=== PATIENT | female | born 1985 | race Caucasian/White ===

== ENCOUNTER 2017-01-28 10:26 | Emergency (ER) | payer MEDICAID ==
[2017-01-28 10:51] VITALS: BP 116/78
[2017-01-28] MEDS ORDERED: Sodium Chloride 0.9% 10 ML Syringe FLUSH PRN (11:05)
[2017-01-28] MEDS ORDERED: Sodium Chloride 0.9% 1,000 ML IV ONE (11:05)
--- NOTE | 2017-01-28 11:08 | EDM.PDOC ---
ED HPI GENERAL MEDICAL PROBLEM - General Chief Complaint: General Stated Complaint: JUAN, HEAD HURTS, VOMITTING Time Seen by Provider: 01/28/17 11:00 Source of Information: Reports: Patient, RN, RN Notes Reviewed History Limitations: Reports: No Limitations - History of Present Illness INITIAL COMMENTS - FREE TEXT/NARRATIVE: Pt presents to the ER with c/o nausea, vomiting, diarrhea, and generalized aching/weakness since last evening. She admits to fever and chills. She states the symptoms began last evening and have progressively gotten worse. She states she has never felt this sick ever. Onset: Gradual Duration: Getting Worse Location: Reports: Generalized Quality: Reports: Ache Severity: Moderate Improves with: Reports: None Worsens with: Reports: None Associated Symptoms: Reports: Headaches, Nausea/Vomiting Generalized Pain Score (Numeric/FACES): 8 - Related Data Allergies Allergy/AdvReac Type Severity Reaction Status Date / Time No Known Allergies Allergy Verified 01/28/17 10:36 Home Meds: Home Meds DULoxetine [Cymbalta] 60 mg PO DAILY 01/28/17 [History] buPROPion HCl [Wellbutrin Xl] 300 mg PO BEDTIME 01/28/17 [History] Past Medical History - Past Health History Medical/Surgical History: Denies Medical/Surgical History Genitourinary History: Reports: Renal Calculus Psychiatric History: Reports: Anxiety, Depression - Past Surgical History GI Surgical History: Reports: Cholecystectomy Social & Family History - Family History Family Medical History: Noncontributory - Tobacco Use Smoking Status *Q: Never Smoker Second Hand Smoke Exposure: No - Caffeine Use Caffeine Use: Reports: Coffee, Energy Drinks, Soda, Tea - Alcohol Use Days Per Week of Alcohol Use: 0 - Recreational Drug Use Recreational Drug Use: No ED ROS GENERAL - Review of Systems Review Of Systems: ROS reveals no pertinent complaints other than HPI. ED EXAM, GENERAL - Physical Exam Exam: See Below Exam Limited By: No Limitations General Appearance: Alert, WD/WN, Mild Distress Eye Exam: Bilateral Eye: EOMI, Normal Inspection Ears: Normal External Exam, Hearing Grossly Normal Nose: Normal Inspection Throat/Mouth: Normal Inspection, Normal Voice, No Airway Compromise Head: Atraumatic, Normocephalic Neck: Normal Inspection, Supple, Non-Tender, Full Range of Motion Respiratory/Chest: No Respiratory Distress, Lungs Clear, Normal Breath Sounds, No Accessory Muscle Use, Chest Non-Tender Cardiovascular: Normal Peripheral Pulses, Regular Rate, Rhythm, No Edema, No Gallop, No JVD, No Murmur, No Rub Peripheral Pulses: 2+: Radial (L), Radial (R) GI/Abdominal: Normal Bowel Sounds, Soft, Non-Tender (Female) Exam: Deferred Rectal (Female) Exam: Deferred Back Exam: Normal Inspection, Full Range of Motion Extremities: Normal Inspection, Normal Range of Motion, Non-Tender, No Pedal Edema, Normal Capillary Refill Neurological: Alert, Oriented, Normal Cognition, Normal Gait, No Motor/Sensory Deficits Psychiatric: Normal Affect, Normal Mood Skin Exam: Warm, Dry, Intact, Normal Color, No Rash Lymphatic: No Adenopathy Course - Vital Signs Last Recorded V/S: Last Vital Signs Temp 99.1 F 01/28/17 10:49 Pulse 107 H 01/28/17 10:49 Resp 16 01/28/17 10:49 BP 116/78 01/28/17 10:49 Pulse Ox 100 01/28/17 10:49 - Orders/Labs/Meds Orders: Active Orders 24 hr Category Date Time Status Peripheral IV Care [RC] . DIRECTED Care 01/28/17 11:05 Active CULTURE STREP A CONFIRMATION [RM] Stat Lab 01/28/17 10:45 Results STREP SCRN A RAPID W CULT CONF [RM] Stat Lab 01/28/17 10:45 Results URINALYSIS W/MICROSCOPIC [UA W/MICROSCOPIC] [URIN] Stat Lab 01/28/17 10:54 Uncollected Sodium Chloride 0.9% [Saline Flush] Med 01/28/17 11:05 Active 10 ml FLUSH ASDIRECTED PRN Peripheral IV Insertion Adult [OM.PC] Stat Oth 01/28/17 11:04 Ordered Medication Orders Sodium Chloride (Saline Flush) 10 ml FLUSH ASDIRECTED PRN PRN Reason: Keep Vein Open Last Admin: 01/28/17 11:45 Dose: 10 ml Labs: Laboratory Tests 01/28/17 01/28/17 01/28/17 Range/Units 10:15 11:15 11:15 WBC 9.4 (5.0-10.0) 10^3/uL RBC 4.93 (4.2-5.4) 10^6/uL Hgb 13.6 D (12.0-16.0) g/dL Hct 40.0 (37.0-47.0) % MCV 81.1 (80-100) fL MCH 27.6 (27.0-34.0) pg MCHC 34.0 (33.0-35.0) g/dL Plt Count 255 (150-450) 10^3/uL Neut % (Auto) 82.1 H (42.2-75.2) % Lymph % (Auto) 11.6 L (20.5-50.1) % Millard % (Auto) 5.6 (2-8) % Eos % (Auto) 0.5 L (1.0-3.0) % Baso % (Auto) 0.2 (0.0-1.0) % Sodium 136 (135-145) mmol/L Potassium 3.6 (3.6-5.0) mmol/L Chloride 102 (101-111) mmol/L Carbon Dioxide 24.0 (21.0-31.0) mmol/L Anion Gap 13.6 BUN 13 (7-18) mg/dL Creatinine 0.7 (0.6-1.3) mg/dL Est Cr Clr Drug Dosing 101.48 mL/min Estimated GFR (MDRD) > 60 BUN/Creatinine Ratio 18.57 Glucose 96 (74-105) mg/dL Calcium 8.8 (8.4-10.2) mg/dl Total Bilirubin 0.9 (0.2-1.0) mg/dL AST 36 (10-42) IU/L ALT 73 H (10-60) IU/L Alkaline Phosphatase 72 (42-121) IU/L Total Protein 7.4 (6.7-8.2) g/dl Albumin 3.9 (3.2-5.5) g/dl Globulin 3.5 Albumin/Globulin Ratio 1.11 Urine HCG, Qual Negative Meds: Medications Generic Name Dose Route Start Last Admin Trade Name Freq PRN Reason Stop Dose Admin Sodium Chloride 10 ml 01/28/17 11:05 01/28/17 11:45 Saline Flush FLUSH 10 ml ASDIRECTED PRN Administration Keep Vein Open Discontinued Medications Generic Name Dose Route Start Last Admin Trade Name Freq PRN Reason Stop Dose Admin Sodium Chloride 1,000 mls @ 999 mls/hr 01/28/17 11:05 01/28/17 11:45 Normal Saline IV 01/28/17 12:05 999 mls/hr .BOLUS ONE Administration Ondansetron HCl 4 mg 01/28/17 11:43 01/28/17 11:47 Zofran IV 01/28/17 11:44 4 mg ONETIME ONE Administration Departure - Departure Time of Disposition: 12:52 Disposition: Home, Self-Care 01 Condition: Fair Clinical Impression: Viral gastroenteritis - Discharge Information Instructions: Viral Gastroenteritis, Adult, [id number], Nausea, Adult, Easy- to-Read, Diarrhea, Adult, [id number] Forms: ED Department Discharge Additional Instructions: Follow up with your primary care provider next week if no improvement. RX: Zofran Rest, fluids Tylenol or ibuprofen as directed for pain - My Orders Last 24 Hours: My Active Orders 01/28/17 10:45 CULTURE STREP A CONFIRMATION [RM] Stat STREP SCRN A RAPID W CULT CONF [RM] Stat 01/28/17 10:54 URINALYSIS W/MICROSCOPIC [UA W/MICROSCOPIC] [URIN] Stat 01/28/17 11:04 Peripheral IV Insertion Adult [OM.PC] Stat 01/28/17 11:05 Peripheral IV Care [RC] . DIRECTED Sodium Chloride 0.9% [Saline Flush] 10 ml FLUSH ASDIRECTED PRN - Assessment/Plan Last 24 Hours: My Active Orders 01/28/17 10:45 CULTURE STREP A CONFIRMATION [RM] Stat STREP SCRN A RAPID W CULT CONF [RM] Stat 01/28/17 10:54 URINALYSIS W/MICROSCOPIC [UA W/MICROSCOPIC] [URIN] Stat 01/28/17 11:04 Peripheral IV Insertion Adult [OM.PC] Stat 01/28/17 11:05 Peripheral IV Care [RC] . DIRECTED Sodium Chloride 0.9% [Saline Flush] 10 ml FLUSH ASDIRECTED PRN
[2017-01-28 11:40] LABS: CHLORIDE,CL 102 mmol/L (101-111); SODIUM,NA 136 mmol/L (135-145)
[2017-01-28] MEDS ORDERED: Ondansetron 4 MG/2 ML SDV IV ONE (11:43)
== END 2017-01-28 13:19 | disposition home or self-care (01) ==
LOC: DL.ED 10:26
DX: A08.4 Viral intestinal infection, unspecified (principal); F32.9 Major depressive disorder, single episode, unspecified; Z79.899 Other long term (current) drug therapy
CPT/HCPCS: 36415; 80053; 81025; 85025; 87081; 87430; 87804; 96361; 96374; 99283; J2405; J7030; J7050

== ENCOUNTER 2019-03-20 20:14 | Emergency (ER) | payer MEDICAID ==
[2019-03-20] MEDS ORDERED: Ondansetron 4 MG Tab.DIS PO ONE (20:15)
[2019-03-20] MEDS ORDERED: Acetaminophen/oxyCODONE 325-5 MG Tab PO ONE (20:15)
[2019-03-20 20:42] VITALS: BP 131/85; PULSE 62
--- NOTE | 2019-03-20 20:59 | EDM.PDOC ---
ED HPI GENERAL MEDICAL PROBLEM - General Chief Complaint: Flank Pain Stated Complaint: ABDOMINAL PAIN Time Seen by Provider: 03/20/19 20:59 Source of Information: Reports: Patient, RN, RN Notes Reviewed History Limitations: Reports: No Limitations - History of Present Illness INITIAL COMMENTS - FREE TEXT/NARRATIVE: patient presents to ER with complaint of left lower quadrant, left flank pain. Patient states she has a and tubal ligation 6 weeks ago. Patient states she has a history of kidney stones, with her last flareup of kidney stones being during . Patient admits to nausea and vomiting, frequency , urgency, burning with urination. 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 Onset: Gradual Duration: Constant, Getting Worse Location: Reports: Abdomen Left Lower Abdomen Pain Score (Numeric/FACES): 7 - Related Data Allergies Allergy/AdvReac Type Severity Reaction Status Date / Time No Known Allergies Allergy Verified 01/30/19 18:03 Home Meds: Home Meds Escitalopram [Lexapro] 20 mg PO DAILY 01/04/18 [History] No122/Iron/Folic Acid [ Multi Tablet] 1 each PO DAILY 01/09/18 [History] ursodioL [Ursodiol] 250 mg PO BID 01/06/19 [History] Past Medical History - Past Health History Medical/Surgical History: Denies Medical/Surgical History HEENT History: Reports: None Cardiovascular History: Reports: None Other Cardiovascular History: PEDAL EDEMA Respiratory History: Reports: Bronchitis, Recurrent Gastrointestinal History: Reports: Chronic Constipation, Irritable Bowel Syndrome Genitourinary History: Reports: Renal Calculus [employer] History: Reports: , Spontaneous Musculoskeletal History: Reports: Arthritis Neurological History: Reports: None Psychiatric History: Reports: ADHD, Anxiety, Depression Endocrine/Metabolic History: Reports: Obesity/BMI 30+ Hematologic History: Reports: Anemia Immunologic History: Reports: None Oncologic (Cancer) History: Reports: None Dermatologic History: Reports: None - Infectious Disease History Infectious Disease History: Reports: None - Past Surgical History Head Surgeries/Procedures: Reports: None HEENT Surgical History: Reports: None Cardiovascular Surgical History: Reports: None GI Surgical History: Reports: Cholecystectomy Female Surgical History: Reports: Section Musculoskeletal Surgical History: Reports: None Social & Family History - Family History Family Medical History: Noncontributory - Tobacco Use Smoking Status *Q: Never Smoker Second Hand Smoke Exposure: No - Caffeine Use Caffeine Use: Reports: Coffee, Soda Caffeine Use Comment: 1 pop daily - Recreational Drug Use Recreational Drug Use: No ED ROS GENERAL - Review of Systems Review Of Systems: Comprehensive ROS is negative, except as noted in HPI. ED EXAM, RENAL/ - Physical Exam Exam: See Below Exam Limited By: No Limitations General Appearance: Alert, WD/WN, Mild Distress Eye Exam: Bilateral Eye: EOMI, Normal Inspection Ears: Normal External Exam, Hearing Grossly Normal Nose: Normal Inspection Throat/Mouth: Normal Inspection, Normal Voice, No Airway Compromise Head: Atraumatic, Normocephalic Neck: Normal Inspection, Supple, Non-Tender, Full Range of Motion Respiratory/Chest: No Respiratory Distress, Lungs Clear, Normal Breath Sounds, No Accessory Muscle Use, Chest Non-Tender Cardiovascular: Normal Peripheral Pulses, Regular Rate, Rhythm, No Edema, No Gallop, No JVD, No Murmur, No Rub GI/Abdominal: Normal Bowel Sounds, Soft, No Organomegaly, No Distention, No Abnormal Bruit, No Mass, Tender (LLQ, Left flank pain) (Female) Exam: Deferred Rectal (Female) Exam: Deferred Back Exam: CVA Tenderness (L) Extremities: Normal Inspection, Normal Range of Motion, Non-Tender, Normal Capillary Refill, No Pedal Edema Neurological: Alert, Oriented, CN II-XII Intact, Normal Cognition, Normal Gait, Normal Reflexes, No Motor/Sensory Deficits Psychiatric: Normal Affect, Normal Mood Skin Exam: Warm, Dry, Intact, Normal Color, No Rash Lymphatic: No Adenopathy Course - Vital Signs Last Recorded V/S: Last Vital Signs Temp 97.1 F 03/20/19 20:37 Pulse 62 03/20/19 20:37 Resp 16 03/20/19 20:37 BP 131/85 03/20/19 20:37 Pulse Ox 100 03/20/19 20:37 - Orders/Labs/Meds Orders: Active Orders 24 hr Category Date Time Status Abdomen 2V AP Flat Upright [CR] Urgent Exams 03/20/19 21:05 Taken Abdomen Pelvis wo Cont [CT] Urgent Exams 03/20/19 21:50 Taken CULTURE URINE [RM] Stat Lab 03/20/19 20:35 Received Labs: Laboratory Tests 03/20/19 03/20/19 03/20/19 Range/Units 20:35 20:35 20:52 WBC 9.9 (5.0-10.0) 10^3/uL RBC 4.69 (4.2-5.4) 10^6/uL Hgb 12.0 (12.0-16.0) g/dL Hct 36.1 L (37.0-47.0) % MCV 77.0 L D (80-100) fL MCH 25.6 L (27.0-34.0) pg MCHC 33.2 (33.0-35.0) g/dL Plt Count 312 (150-450) 10^3/uL Neut % (Auto) 71.5 (42.2-75.2) % Lymph % (Auto) 20.7 (20.5-50.1) % Elbert % (Auto) 5.9 (2-8) % Eos % (Auto) 1.7 (1.0-3.0) % Baso % (Auto) 0.2 (0.0-1.0) % Sodium (135-145) mmol/L Potassium (3.6-5.0) mmol/L Chloride (101-111) mmol/L Carbon Dioxide (21.0-31.0) mmol/L Anion Gap BUN (7-18) mg/dL Creatinine (0.6-1.3) mg/dL Est Cr Clr Drug Dosing mL/min Estimated GFR (MDRD) BUN/Creatinine Ratio Glucose (74-105) mg/dL Calcium (8.4-10.2) mg/dl Total Bilirubin (0.2-1.0) mg/dL AST (10-42) IU/L ALT (10-60) IU/L Alkaline Phosphatase (42-121) IU/L Total Protein (6.7-8.2) g/dl Albumin (3.2-5.5) g/dl Globulin Albumin/Globulin Ratio Urine Color Dark yellow (YELLOW) Urine Appearance Turbid (CLEAR) Urine pH 5.5 (5.0-9.0) Ur Specific [place] 1.025 (1.005-1.030) Urine Protein 100 H (NEGATIVE) Urine Glucose (UA) Negative (NEGATIVE) Urine Ketones Negative (NEGATIVE) Urine Occult Blood Large H (NEGATIVE) Urine Nitrite Negative (NEGATIVE) Urine Bilirubin Small H (NEGATIVE) Urine Urobilinogen 1.0 (0.2-1.0) mg/dL Ur Leukocyte Esterase Trace H (NEGATIVE) Urine RBC >100 H /HPF Urine WBC 5-10 H (0-5/HPF) /HPF Ur Epithelial Cells Moderate H (NOT SEEN) /HPF Amorphous Sediment Few (NOT SEEN) /HPF Urine Bacteria Few (0-FEW/HPF) /HPF Urine Mucus Few H (NOT SEEN) /LPF Urine HCG, Qual Negative 03/20/19 Range/Units 20:52 WBC (5.0-10.0) 10^3/uL RBC (4.2-5.4) 10^6/uL Hgb (12.0-16.0) g/dL Hct (37.0-47.0) % MCV (80-100) fL MCH (27.0-34.0) pg MCHC (33.0-35.0) g/dL Plt Count (150-450) 10^3/uL Neut % (Auto) (42.2-75.2) % Lymph % (Auto) (20.5-50.1) % Elbert % (Auto) (2-8) % Eos % (Auto) (1.0-3.0) % Baso % (Auto) (0.0-1.0) % Sodium 138 (135-145) mmol/L Potassium 3.4 L (3.6-5.0) mmol/L Chloride 105 (101-111) mmol/L Carbon Dioxide 24.0 (21.0-31.0) mmol/L Anion Gap 12.4 BUN 12 (7-18) mg/dL Creatinine 0.8 (0.6-1.3) mg/dL Est Cr Clr Drug Dosing 87.18 mL/min Estimated GFR (MDRD) > 60 BUN/Creatinine Ratio 15.00 Glucose 112 H (74-105) mg/dL Calcium 9.0 (8.4-10.2) mg/dl Total Bilirubin 0.8 (0.2-1.0) mg/dL AST 48 H (10-42) IU/L ALT 58 (10-60) IU/L Alkaline Phosphatase 67 (42-121) IU/L Total Protein 7.3 (6.7-8.2) g/dl Albumin 3.7 (3.2-5.5) g/dl Globulin 3.6 Albumin/Globulin Ratio 1.03 Urine Color (YELLOW) Urine Appearance (CLEAR) Urine pH (5.0-9.0) Ur Specific [place] (1.005-1.030) Urine Protein (NEGATIVE) Urine Glucose (UA) (NEGATIVE) Urine Ketones (NEGATIVE) Urine Occult Blood (NEGATIVE) Urine Nitrite (NEGATIVE) Urine Bilirubin (NEGATIVE) Urine Urobilinogen (0.2-1.0) mg/dL Ur Leukocyte Esterase (NEGATIVE) Urine RBC /HPF Urine WBC (0-5/HPF) /HPF Ur Epithelial Cells (NOT SEEN) /HPF Amorphous Sediment (NOT SEEN) /HPF Urine Bacteria (0-FEW/HPF) /HPF Urine Mucus (NOT SEEN) /LPF Urine HCG, Qual Meds: Medications Discontinued Medications Generic Name Dose Route Start Last Admin Trade Name Freq PRN Reason Stop Dose Admin Ciprofloxacin 500 mg 03/20/19 22:52 Ciprofloxacin Hcl PO 03/20/19 22:53 ONETIME ONE Fentanyl 50 mcg 03/20/19 22:12 03/20/19 22:22 Sublimaze IVPUSH 03/20/19 22:13 50 mcg ONETIME ONE Administration Sodium Chloride 1,000 mls @ 999 mls/hr 03/20/19 21:24 03/20/19 21:26 Normal Saline IV 03/20/19 22:24 999 mls/hr .BOLUS ONE Administration Ketorolac Tromethamine 30 mg 03/20/19 21:28 03/20/19 21:39 Toradol IVPUSH 03/20/19 21:29 30 mg ONETIME ONE Administration Metronidazole 500 mg 03/20/19 22:53 Metronidazole PO 03/20/19 22:54 ONETIME ONE Ondansetron HCl 4 mg 03/20/19 21:27 03/20/19 21:38 Zofran IV 03/20/19 21:28 4 mg ONETIME ONE Administration - Radiology Interpretation Free Text/Narrative:: Abdominal flat and upright xray: FINDINGS: Lower thorax: The right hemidiaphragm dome is excluded from the upright frontal image. No free air is seen on the left area Gastrointestinal tract: No over distention of bowel loops is seen. Intraperitoneal space: Surgical clips are present in the right upper quadrant, consistent with previous cholecystectomy. Bones/joints: The spine, sacroiliac joints, and hip joints are normal. Soft tissues: The psoas margins are visualized and appear normal. IMPRESSION: No acute abnormality. Thank you for allowing us to participate in the care of your patient. Dictated and Authenticated by: Sam Garcia MD 03/20/2019 9:42 PM Central Time ([place] & [place]) CT Abdomen/Pelvis without contrast: FINDINGS: Heart: The visualized portions of the heart are unremarkable. Liver: There is a diffuse decrease in hepatic parenchymal density. Gallbladder and bile ducts: There has been a cholecystectomy. The common bile duct is not dilated. Pancreas: The pancreas is normal. Spleen: The spleen is normal. Adrenals: The adrenal glands are normal. The adrenal glands are normal. Kidneys and ureters: There is a 3 mm calculus in the lower pole of the right kidney. There is a 2 mm calculus in the midportion of the right kidney. There is mild distention of the left pelvic calyceal system. There are 2 adjacent tics millimeter calculi in the mid left ureter with modest distention of the upstream urothelium. Stomach and bowel: The stomach is normal. No over distention of bowel loops is seen. Appendix: A normal appendix is identified. Intraperitoneal space: No evidence of intraperitoneal free air. Vasculature: The aorta is normal. Lymph nodes: No pathologic lymph node enlargement is demonstrated. Bladder: The bladder is normal. Reproductive: The uterus is normal. Bones/joints: Unremarkable Soft tissues: The extra-abdominal soft tissues are normal. IMPRESSION: 1. Left mid ureteral calculi. 2. Mild fatty infiltration of the liver. Thank you for allowing us to participate in the care of your patient. Dictated and Authenticated by: Sam Garcia MD 03/20/2019 10:29 PM Central Time ([place] & [place]) See rad report - Re-Assessments/Exams Free Text/Narrative Re-Assessment/Exam: 03/20/19 23:01 Discussed Pt case with Dr. Martins at [facility] who states the patient can be seen in the clinic tomorrow with the possibility of procedure on . Departure - Departure Time of Disposition: 22:56 Disposition: Home, Self-Care 01 Condition: Fair Clinical Impression: UTI, Urinary tract infectious disease, Kidney stones, Bacterial vaginosis - Discharge Information *PRESCRIPTION DRUG MONITORING PROGRAM REVIEWED*: No *COPY OF PRESCRIPTION DRUG MONITORING REPORT IN PATIENT RICHARD: No Instructions: Kidney Stones, [id number], Urinary Tract Infection, Adult, Easy -to-Read, Bacterial Vaginosis, [id number], Flank Pain, Adult, [id number] Forms: ED Department Discharge Additional Instructions: Rx: Percocet 5/325, one every 4-6 hours as needed for pain .Zofran 4 mg 1 every 4-6 hours as needed for nausea Flagyl 500 mg one orally twice daily for 7 days Cipro 500 mg one orally twice daily for 10 days Drink plenty of water call the urology clinic in [place] right away in the morning [phone] Urology clinic is located at the [facility] Return to the ER with any worsening of symptoms Sepsis Event Note - Evaluation Sepsis Screening Result: No Definite Risk - Focused Exam Vital Signs: Vital Signs Temp Pulse Resp BP Pulse Ox 03/20/19 20:37 97.1 F 62 16 131/85 100 Date Exam was Performed: 03/20/19 Time Exam was Performed: 23:01 - My Orders Last 24 Hours: My Active Orders 03/20/19 20:35 CULTURE URINE [RM] Stat 03/20/19 21:05 Abdomen 2V AP Flat Upright [CR] Urgent 03/20/19 21:50 Abdomen Pelvis wo Cont [CT] Urgent - Assessment/Plan Last 24 Hours: My Active Orders 03/20/19 20:35 CULTURE URINE [RM] Stat 03/20/19 21:05 Abdomen 2V AP Flat Upright [CR] Urgent 03/20/19 21:50 Abdomen Pelvis wo Cont [CT] Urgent
[2019-03-20 21:23] LABS: ANION GAP 12.4; CHLORIDE,CL 105 mmol/L (101-111); SODIUM,NA 138 mmol/L (135-145)
[2019-03-20] MEDS ORDERED: Sodium Chloride 0.9% 1,000 ML IV ONE (21:24)
[2019-03-20] MEDS ORDERED: Ondansetron 4 MG/2 ML SDV IV ONE (21:27)
[2019-03-20] MEDS ORDERED: Ketorolac 30 MG/ML SDV IVPUSH ONE (21:28)
[2019-03-20] MEDS ORDERED: fentaNYL 100 MCG/2 ML SDV IVPUSH ONE (22:12)
[2019-03-20] MEDS ORDERED: Ciprofloxacin 500 MG Tab PO ONE (22:52)
[2019-03-20] MEDS ORDERED: metroNIDAZOLE 250 MG Tab PO ONE (22:53)
[2019-03-20] MEDS ORDERED: Ondansetron 4 MG Tab.DIS ONE (23:06)
[2019-03-20] MEDS ORDERED: Acetaminophen/oxyCODONE 325-5 MG Tab ONE (23:06)
== END 2019-03-20 23:15 | disposition home or self-care (01) ==
LOC: DL.ED 20:14
DX: N39.0 Urinary tract infection, site not specified (principal); N20.0 Calculus of kidney; N76.0 Acute vaginitis; B96.89 Other specified bacterial agents as the cause of diseases classified elsewhere; F41.9 Anxiety disorder, unspecified; F32.9 Major depressive disorder, single episode, unspecified; E66.9 Obesity, unspecified; Z68.42 Body mass index [BMI] 45.0-49.9, adult; M19.90 Unspecified osteoarthritis, unspecified site; Z79.899 Other long term (current) drug therapy
CPT/HCPCS: 36415; 74019; 74176; 80053; 81001; 81025; 85025; 87086; 96361; 96374; 96375; 99284; A9270; J1885; J2405; J3010; J7030

== ENCOUNTER 2020-07-08 17:05 | Emergency (ER) | payer MEDICAID ==
[2020-07-08] MEDS ORDERED: Acetaminophen/HYDROcodone 325-10 MG Tab PO ONE (17:06)
[2020-07-08] MEDS ORDERED: Ondansetron 4 MG Tab.DIS PO ONE (17:06)
[2020-07-08 17:28] VITALS: BP 104/62; PULSE 70
[2020-07-08] MEDS ORDERED: Sodium Chloride 0.9% 1,000 ML IV ONE (17:33)
[2020-07-08] MEDS ORDERED: Sodium Chloride 0.9% 10 ML Syringe FLUSH PRN (17:33)
[2020-07-08] MEDS ORDERED: Ondansetron 4 MG/2 ML SDV IV ONE (18:11)
[2020-07-08 18:18] LABS: ANION GAP 13.3 mEq/L (7-13); CHLORIDE,CL 104 mmol/L (98-107); SODIUM,NA 140 mmol/L (136-145)
--- NOTE | 2020-07-08 18:36 | EDM.PDOC ---
Scribed by Clare Valentine 07/08/20 1824 for Rhea Leos MD ED HPI GENERAL MEDICAL PROBLEM - General Source of Information: Reports: Patient, RN, RN Notes Reviewed History Limitations: Reports: No Limitations - History of Present Illness Onset: Today Severity: Moderate Improves with: Reports: None Worsens with: Reports: None Associated Symptoms: Reports: No Other Symptoms <Rhea Leos - Last Filed: 07/08/20 18:42> <DianasoniaTaylorReyna Lee - Last Filed: 07/09/20 02:44> - General Chief Complaint: Syncope Stated Complaint: PASSED OUT HIT HEAD ON TUB Time Seen by Provider: 07/08/20 17:19 - History of Present Illness INITIAL COMMENTS - FREE TEXT/NARRATIVE: Patient presents to ED by POV with complaint syncope. Patient states that she was sitting on toilet peeing when she became nauseated and had a syncopal episode. Patient states she hit her chin on the bathtub. Patient states that she was started on Abilify 10mg and took her first dose last night. Patient states that she has been vaping and smoked marijuana a few days ago. She has nausea since waking this morning. Denies vomiting or fever. Denies abdominal pain or dysuria. She denies vertigo, chest pain, palpitations, or headache. (Rhea Leos) - Related Data Allergies Allergy/AdvReac Type Severity Reaction Status Date / Time No Known Allergies Allergy Verified 07/08/20 17:21 Home Meds: Home Meds Escitalopram [Lexapro] 20 mg PO DAILY 01/04/18 [History] ARIPiprazole [Abilify] 10 mg PO DAILY 07/08/20 [History] risperiDONE [RisperiDAL] 1 mg PO BEDTIME 07/08/20 [History] Past Medical History - Past Health History Medical/Surgical History: Denies Medical/Surgical History HEENT History: Reports: None Cardiovascular History: Reports: None Other Cardiovascular History: PEDAL EDEMA Respiratory History: Reports: Bronchitis, Recurrent Gastrointestinal History: Reports: Chronic Constipation, Irritable Bowel S yndrome Genitourinary History: Reports: Renal Calculus [employer]IGONOMET[employer] TE[employer]ER History: Reports: , Spontaneous Musculoskeletal History: Reports: Arthritis Neurological History: Reports: None Psychiatric History: Reports: ADHD, Anxiety, Depression Endocrine/Metabolic History: Reports: Obesity/BMI 30+ Hematologic History: Reports: Anemia Immunologic History: Reports: None Oncologic (Cancer) History: Reports: None Dermatologic History: Reports: None - Infectious Disease History Infectious Disease History: Reports: None - Past Surgical History Head Surgeries/Procedures: Reports: None HEENT Surgical History: Reports: None Cardiovascular Surgical History: Reports: None GI Surgical History: Reports: Cholecystectomy Female Surgical History: Reports: Section Musculoskeletal Surgical History: Reports: None <AnoopanaRhea De La Paz - Last Filed: 07/08/20 18:42> Social & Family History - Family History Family Medical History: No Pertinent Family History - Caffeine Use Caffeine Use: Reports: Coffee, Soda Caffeine Use Comment: 1 pop daily - Living Situation & Occupation Living situation: Reports: with Significant Other <DericRhea De La Paz - Roberto Filed: 07/08/20 18:42> ED ROS GENERAL - Review of Systems Review Of Systems: Comprehensive ROS is negative, except as noted in HPI. <DericRhea De La Paz - Last Filed: 07/08/20 18:42> - Physical Exam Exam: See Below Exam Limited By: No Limitations General Appearance: Alert, WD/WN, No Apparent Distress, Obese Eye Exam: Bilateral Eye: EOMI, Normal Inspection, PERRL Ears: Normal External Exam, Normal Canal, Hearing Grossly Normal, Normal TMs Nose: Normal Inspection, Normal Mucosa, No Blood Throat/Mouth: Normal Inspection, Normal Lips, Normal Teeth, Normal Gums, Normal Oropharynx, Normal Voice, No Airway Compromise Head Exam: Atraumatic, Normocephalic Neck: Normal Inspection, Supple, Non-Tender, Full Range of Motion Respiratory/Chest: No Respiratory Distress, Lungs Clear, Normal Breath Sounds, No Accessory Muscle Use, Chest Non-Tender Cardiovascular: Normal Peripheral Pulses, Regular Rate, Rhythm, No Edema, No Gallop, No JVD, No Murmur, No Rub GI/Abdominal: Normal Bowel Sounds, Soft, Non-Tender, No Organomegaly, No Distention, No Abnormal Bruit, No Mass (Female) Exam: Deferred Rectal (Female) Exam: Deferred Back Exam: Normal Inspection, Full Range of Motion, NT Extremities: Normal Inspection, Normal Range of Motion, Non-Tender, No Pedal Edema, Normal Capillary Refill Psychiatric: Normal Affect, Normal Mood Skin Exam: Warm, Dry, Intact, Normal Color, No Rash <Rhea Leos - Last Filed: 07/08/20 18:42> #1 Interpretation EKG Date: 07/08/20 Time: 17:31 Rhythm: Other (sinus rhythm) Rate (Beats/Min): 66 [place]: Normal P-Wave: Present QRS: Other (low voltage, precordial leads.) ST-T: Normal QT: Normal Comparison: NA - No Prior EKG <Rhea Leos - Last Filed: 07/08/20 18:42> Course <Rhea Leos - Last Filed: 07/08/20 18:42> <DianasoniaReyna Marcial - Last Filed: 07/09/20 02:44> - Vital Signs Last Recorded V/S: Last Vital Signs Temp 97.4 F 07/08/20 17:22 Pulse 70 07/08/20 17:22 Resp 20 07/08/20 17:22 BP 104/62 07/08/20 17:22 Pulse Ox 100 07/08/20 17:22 Orthostatic Blood Pressure [ 111/75 Standing] Orthostatic Blood Pressure [ 111/65 Sitting] Orthostatic Blood Pressure [ 103/74 Supine] - Orders/Labs/Meds Orders: Active Orders 24 hr Category Date Time Status Abdomen Pelvis wo Cont [CT] Urgent Exams 07/08/20 20:00 Ordered Peripheral IV Insertion Adult [OM.PC] Stat Oth 07/08/20 17:32 Ordered Labs: Laboratory Tests 07/08/20 07/08/20 07/08/20 Range/Units 17:32 17:32 17:43 WBC 9.7 (5.0-10.0) 10^3/uL RBC 5.13 (4.2-5.4) 10^6/uL Hgb 13.0 (12.0-16.0) g/dL Hct 39.3 (37.0-47.0) % MCV 76.6 L (80-100) fL MCH 25.3 L (27.0-34.0) pg MCHC 33.1 (33.0-35.0) g/dL Plt Count 295 (150-450) 10^3/uL Neut % (Auto) 64.0 (42.2-75.2) % Lymph % (Auto) 28.0 (20.5-50.1) % Alfalfa % (Auto) 6.5 (2-8) % Eos % (Auto) 1.0 (1.0-3.0) % Baso % (Auto) 0.5 (0.0-1.0) % D-Dimer, Quantitative (0-400) ng/mL Sodium (136-145) mmol/L Potassium (3.5-5.1) mmol/L Chloride (98-107) mmol/L Carbon Dioxide (21-32) mmol/L Anion Gap (7-13) mEq/L BUN (7-18) mg/dL Creatinine (0.55-1.02) mg/dL Est Cr Clr Drug Dosing mL/min Estimated GFR (MDRD) BUN/Creatinine Ratio (No establ ref range) Glucose (70-99) mg/dL Calcium (8.5-10.1) mg/dL Magnesium (1.8-2.4) mg/dL Total Bilirubin (0.2-1.0) mg/dL AST (15-37) U/L ALT (14-59) U/L Alkaline Phosphatase (46-116) U/L Troponin I (0.000-0.056) ng/mL Total Protein (6.4-8.2) g/dL Albumin (3.4-5.0) g/dL Globulin Albumin/Globulin Ratio Amylase (25-115) U/L TSH, Ultra Sensitive (0.36-3.74) uIU/mL Urine Color (YELLOW) Urine Appearance (CLEAR) Urine pH (5.0-9.0) Ur Specific [place] (1.005-1.030) Urine Protein (NEGATIVE) Urine Glucose (UA) (NEGATIVE) Urine Ketones (NEGATIVE) Urine Occult Blood (NEGATIVE) Urine Nitrite (NEGATIVE) Urine Bilirubin (NEGATIVE) Urine Urobilinogen (0.2-1.0) mg/dL Ur Leukocyte Esterase (NEGATIVE) Urine RBC /HPF Urine WBC (0-5/HPF) /HPF Ur Epithelial Cells (NOT SEEN) /HPF Amorphous Sediment (NOT SEEN) /HPF Urine Bacteria (0-FEW/HPF) /HPF Urine Mucus (NOT SEEN) /LPF Urine HCG, Qual Negative Urine Opiates Screen Negative (NEGATIVE) Ur Oxycodone Screen Negative (NEGATIVE) Urine Methadone Screen Negative (NEGATIVE) Ur Barbiturates Screen Negative (NEGATIVE) U Tricyclic Antidepress Negative (NEGATIVE) Ur Phencyclidine Scrn Negative (NEGATIVE) Ur Amphetamine Screen Negative (NEGATIVE) U Methamphetamines Scrn Negative (NEGATIVE) Urine MDMA Screen Negative (NEGATIVE) U Benzodiazepines Scrn Negative (NEGATIVE) Urine Cocaine Screen Negative (NEGATIVE) U Marijuana (THC) Screen Negative (NEGATIVE) Ethyl Alcohol (0) mg/dL 07/08/20 07/08/20 07/08/20 Range/Units 17:43 17:43 17:52 WBC (5.0-10.0) 10^3/uL RBC (4.2-5.4) 10^6/uL Hgb (12.0-16.0) g/dL Hct (37.0-47.0) % MCV (80-100) fL MCH (27.0-34.0) pg MCHC (33.0-35.0) g/dL Plt Count (150-450) 10^3/uL Neut % (Auto) (42.2-75.2) % Lymph % (Auto) (20.5-50.1) % Alfalfa % (Auto) (2-8) % Eos % (Auto) (1.0-3.0) % Baso % (Auto) (0.0-1.0) % D-Dimer, Quantitative 858 H (0-400) ng/mL Sodium 140 (136-145) mmol/L Potassium 4.3 (3.5-5.1) mmol/L Chloride 104 (98-107) mmol/L Carbon Dioxide 27 (21-32) mmol/L Anion Gap 13.3 H (7-13) mEq/L BUN 11 (7-18) mg/dL Creatinine 0.83 (0.55-1.02) mg/dL Est Cr Clr Drug Dosing 79.00 mL/min Estimated GFR (MDRD) > 60 BUN/Creatinine Ratio 13.3 (No establ ref range) Glucose 90 (70-99) mg/dL Calcium 8.7 (8.5-10.1) mg/dL Magnesium 2.0 (1.8-2.4) mg/dL Total Bilirubin 0.4 (0.2-1.0) mg/dL AST 34 (15-37) U/L ALT 60 H (14-59) U/L Alkaline Phosphatase 65 (46-116) U/L Troponin I < 0.017 (0.000-0.056) ng/mL Total Protein 7.4 (6.4-8.2) g/dL Albumin 3.2 L (3.4-5.0) g/dL Globulin 4.2 Albumin/Globulin Ratio 0.76 Amylase 24 L (25-115) U/L TSH, Ultra Sensitive 1.18 (0.36-3.74) uIU/mL Urine Color Yellow (YELLOW) Urine Appearance Cloudy (CLEAR) Urine pH 7.0 (5.0-9.0) Ur Specific [place] 1.020 (1.005-1.030) Urine Protein Negative (NEGATIVE) Urine Glucose (UA) Negative (NEGATIVE) Urine Ketones Negative (NEGATIVE) Urine Occult Blood Large H (NEGATIVE) Urine Nitrite Negative (NEGATIVE) Urine Bilirubin Negative (NEGATIVE) Urine Urobilinogen 0.2 (0.2-1.0) mg/dL Ur Leukocyte Esterase Negative (NEGATIVE) Urine RBC >100 H /HPF Urine WBC 0-5 (0-5/HPF) /HPF Ur Epithelial Cells Moderate H (NOT SEEN) /HPF Amorphous Sediment Few (NOT SEEN) /HPF Urine Bacteria Few (0-FEW/HPF) /HPF Urine Mucus Few H (NOT SEEN) /LPF Urine HCG, Qual Urine Opiates Screen (NEGATIVE) Ur Oxycodone Screen (NEGATIVE) Urine Methadone Screen (NEGATIVE) Ur Barbiturates Screen (NEGATIVE) U Tricyclic Antidepress (NEGATIVE) Ur Phencyclidine Scrn (NEGATIVE) Ur Amphetamine Screen (NEGATIVE) U Methamphetamines Scrn (NEGATIVE) Urine MDMA Screen (NEGATIVE) U Benzodiazepines Scrn (NEGATIVE) Urine Cocaine Screen (NEGATIVE) U Marijuana (THC) Screen (NEGATIVE) Ethyl Alcohol < 3 (0) mg/dL Meds: Medications Discontinued Medications Generic Name Dose Route Start Last Admin Trade Name Freq PRN Reason Stop Dose Admin Hydrocodone Bitart/Acetaminophen Confirm 07/08/20 20:36 Acetaminophen/Hydrocodone 325-10 Mg Tab Administered 07/08/20 20:37 Dose 3 tab .ROUTE .STK-MED ONE Sodium Chloride 1,000 mls @ 999 mls/hr 07/08/20 17:33 07/08/20 17:49 Normal Saline IV 07/08/20 18:33 999 mls/hr .BOLUS ONE Administration Iopamidol 100 ml 07/08/20 19:28 07/08/20 19:37 Iopamidol 755 Mg/Ml 100 Ml Bottle IVPUSH 07/08/20 19:29 83 ml ONETIME ONE Administration Ondansetron HCl 4 mg 07/08/20 18:11 07/08/20 18:33 Ondansetron 4 Mg/2 Ml Sdv IV 07/08/20 18:12 4 mg ONETIME ONE Administration Ondansetron HCl Confirm 07/08/20 20:36 Ondansetron 4 Mg Tab.Dis Administered 07/08/20 20:37 Dose 12 mg .ROUTE .STK-MED ONE Sodium Chloride 10 ml 07/08/20 17:33 07/08/20 17:49 Sodium Chloride 0.9% 10 Ml Syringe FLUSH 10 ml ASDIRECTED PRN Administration Keep Vein Open - Radiology Interpretation Free Text/Narrative:: [facility] Final Radiology Report Call: [phone] assistance Online chat: [email or web address] Name: SAQIB ACKERMAN Age: 35Years F Date: 07/08/2020 SSN: -- : [id number] Study: CR CHEST 1V FRONTAL Requesting Physician: RHEA LEOS Images: 1 Addl Studies: Provided Clinical History: syncope Contrast: Contrast Medium: Contrast Amount: Contrast Method: CONFIDENTIALITY STATEMENT This report is intended only for use by the referring physician, and only in accordance with law. If you received this in error, call [phone]. Page 1 of 1 PROCEDURE INFORMATION: Exam: XR Chest Exam date and time: 07/08/2020 6:17 PM Age: 35 years old Clinical indication: Other: Syncope TECHNIQUE: Imaging protocol: XR of the chest. Views: 1 view. COMPARISON: No relevant prior studies available. FINDINGS: Lungs: Unremarkable. No consolidation. Pleural spaces: Unremarkable. No pleural effusion. No pneumothorax. Heart/Mediastinum: Unremarkable. No cardiomegaly. Bones/joints: Unremarkable. IMPRESSION: No acute findings. Thank you for allowing us to participate in the care of your patient. Dictated and Authenticated by: Luca Gillespie MD 07/08/2020 6:39 PM Central Time ([place] [employer] [place]) (Rhea Leos) - Re-Assessments/Exams Free Text/Narrative Re-Assessment/Exam: 07/08/20 19:00 Care of pt transferred to [facility] at shift change awaiting CT reports. (Rhea Leos) Return from CT with c/o nausea, one emesis. Pain to right flank radiating to groin, similar to prior kidney stones. No pain with palpation to RLQ. Discussed with patient recent chest CT with contrast may limit findings for stone in noncontrast scan. Patient agreeable to follow with PCP tomorrow and has flomax available at home. Zofran for nausea and hydrocodone if pain severe. (Reyna Almodovar) Departure <Rhea Leos - Last Filed: 07/08/20 18:42> - Departure Time of Disposition: 20:40 Condition: Good - Discharge Information *PRESCRIPTION DRUG MONITORING PROGRAM REVIEWED*: No *COPY OF PRESCRIPTION DRUG MONITORING REPORT IN PATIENT RICHARD: No <Reyna Almodovar - Last Filed: 07/09/20 02:44> - Departure Disposition: Home, Self-Care 01 Clinical Impression: Right flank pain, Hx of renal calculi Syncope Qualifiers: Syncope type: vasovagal syncope Qualified Code(s): R55 - Syncope and collapse Hematuria Qualifiers: Hematuria type: other microscopic Qualified Code(s): R31.29 - Other microscopic hematuria; R31.2 - Other microscopic hematuria - Discharge Information Instructions: Flank Pain, Adult, [id number], Syncope, [id number] Forms: ED Department Discharge Additional Instructions: increase fluids lternate tylenol 650mg and ibuprofen 600mg every 4 hours as needed for moderate pain hydrocodone 10/325 one ever 6 hours as needed for severe pain do not exceed greater than 3000mg of tylenol every 24 hours flomax 0.4mg one daily at night for 5 days- change positions slowly Follow up with Dr Duvall tomorrow for scheduling CT abdomen and pelvis without contrast if continued pain urgent follow up if pain severe, unable to control nausea and vomiting with zofran Sepsis Event Note (ED) - Focused Exam Vital Signs: Vital Signs Temp Pulse Resp BP Pulse Ox 07/08/20 17:22 97.4 F 70 20 104/62 100 - My Orders Last 24 Hours: My Active Orders 07/08/20 20:00 Abdomen Pelvis wo Cont [CT] Urgent - Assessment/Plan Last 24 Hours: My Active Orders 07/08/20 20:00 Abdomen Pelvis wo Cont [CT] Urgent I have read and agree with the documentation that has been completed regarding this visit. By signing this record, I attest that the documentation was completed in my physical presence and is an accurate record of the encounter.
--- NOTE | 2020-07-08 18:39 | CR ---
PROCEDURE INFORMATION: Exam: XR Chest Exam date and time: 07/08/2020 6:17 PM Age: 35 years old Clinical indication: Other: Syncope TECHNIQUE: Imaging protocol: XR of the chest. Views: 1 view. COMPARISON: No relevant prior studies available. FINDINGS: Lungs: Unremarkable. No consolidation. Pleural spaces: Unremarkable. No pleural effusion. No pneumothorax. Heart/Mediastinum: Unremarkable. No cardiomegaly. Bones/joints: Unremarkable. IMPRESSION: No acute findings.
[2020-07-08] MEDS ORDERED: Iopamidol 755 Mg/ML 100 ML Bottle IVPUSH ONE (19:28)
--- NOTE | 2020-07-08 19:32 | CT ---
PROCEDURE INFORMATION: Exam: CT Chest With Contrast; Diagnostic Exam date and time: 07/08/2020 7:06 PM Age: 35 years old Clinical indication: Other: Syncope, elevated d-dimer, pe study TECHNIQUE: Imaging protocol: Diagnostic computed tomography of the chest with contrast. Radiation optimization: All CT scans at this facility use at least one of these dose optimization techniques: automated exposure control; mA and/or kV adjustment per patient size (includes targeted exams where dose is matched to clinical indication); or iterative reconstruction. Contrast material: [id number]; Contrast volume: 83 ml; Contrast route: INTRAVENOUS (IV); COMPARISON: CR Chest 1V Frontal 07/08/2020 6:17 PM FINDINGS: Lungs: Unremarkable. No consolidation. No masses. Pleural spaces: Unremarkable. No pneumothorax. No pleural effusion. Heart: Unremarkable. No cardiomegaly. No pericardial effusion. Pulmonary arteries: No pulmonary emboli. Aorta: Unremarkable. No aortic aneurysm. Lymph nodes: Unremarkable. No enlarged lymph nodes. Bones/joints: Unremarkable. No acute fracture. Soft tissues: Cholecystectomy. Splenomegaly. Otherwise unremarkable. IMPRESSION: 1. No acute findings. 2. No pulmonary emboli. No evidence of an aortic dissection.
--- NOTE | 2020-07-08 19:36 | CT ---
PROCEDURE INFORMATION: Exam: CT Head Without Contrast Exam date and time: 07/08/2020 6:56 PM Age: 35 years old Clinical indication: Syncope and collapse TECHNIQUE: Imaging protocol: Computed tomography of the head without contrast. Radiation optimization: All CT scans at this facility use at least one of these dose optimization techniques: automated exposure control; mA and/or kV adjustment per patient size (includes targeted exams where dose is matched to clinical indication); or iterative reconstruction. COMPARISON: No relevant prior studies available. FINDINGS: Brain: Normal. No hemorrhage. Unremarkable white matter. No mass effect. Cerebral ventricles: No ventriculomegaly. Bones/joints: Unremarkable. No acute fracture. Paranasal sinuses: Visualized sinuses are unremarkable. No fluid levels. Mastoid air cells: Visualized mastoid air cells are well aerated. Soft tissues: Unremarkable. IMPRESSION: No acute intracranial abnormality.
[2020-07-08] MEDS ORDERED: Acetaminophen/HYDROcodone 325-10 MG Tab ONE (20:36)
[2020-07-08] MEDS ORDERED: Ondansetron 4 MG Tab.DIS ONE (20:36)
== END 2020-07-08 20:59 | disposition home or self-care (01) ==
LOC: DL.ED 17:05
DX: R55 Syncope and collapse (principal); R10.9 Unspecified abdominal pain; R31.29 Other microscopic hematuria; E66.9 Obesity, unspecified; Z87.442 Personal history of urinary calculi; Z68.43 Body mass index [BMI] 50.0-59.9, adult
CPT/HCPCS: 36415; 70450; 71045; 71260; 80053; 80305-QW; 80307; 81001; 81025; 82150; 83735; 84443; 84484; 85025; 85379; 93005; 96374; 99283; 99284-25; A9270-GY; J2405; J7030; Q9967

== ENCOUNTER 2022-07-10 17:20 | Emergency (ER) | payer MEDICAID ==
[2022-07-10] MEDS ORDERED: diphenhydrAMINE 50 MG/ML SDV IM ONE (19:55)
[2022-07-10 20:13] VITALS: BP 103/67; PULSE 73
== END 2022-07-10 20:16 | disposition home or self-care (01) ==
LOC: DL.ED 17:20
DX: F41.9 Anxiety disorder, unspecified (principal); M79.661 Pain in right lower leg; F17.210 Nicotine dependence, cigarettes, uncomplicated; E66.9 Obesity, unspecified; Z68.42 Body mass index [BMI] 45.0-49.9, adult; Z79.899 Other long term (current) drug therapy
CPT/HCPCS: 96372; 99283; J1200

== ENCOUNTER 2022-10-23 21:24 | Emergency (ER) | payer MEDICAID ==
[2022-10-23] MEDS ORDERED: Sodium Chloride 0.9% 1,000 ML IV ONE (21:26)
[2022-10-23] MEDS ORDERED: Sodium Chloride 0.9% 10 ML Syringe FLUSH PRN (21:26)
[2022-10-23] MEDS ORDERED: Ketorolac 30 MG/ML SDV IVPUSH ONE (21:27)
[2022-10-23] MEDS ORDERED: Metoclopramide 10 MG/2 ML SDV IVPUSH ONE (21:28)
[2022-10-23] MEDS ORDERED: diphenhydrAMINE 50 MG/ML SDV IVPUSH ONE (21:28)
[2022-10-23] MEDS ORDERED: Iopamidol 755 Mg/ML 100 ML Bottle IVPUSH ONE ×2 (21:29→23:25)
[2022-10-23 22:58] LABS: BASOPHILS PERCENT AUTO 0.3 % (0.0-1.0); EOSINOPHILS PERCENT AUTO 3.3 % (1.0-3.0); HEMATOCRIT 37.7 % (37.0-47.0); HEMOGLOBIN 12.8 g/dL (12.0-16.0); LYMPHOCYTES PERCENT AUTO 25.2 % (20.5-50.1); MEAN CORPUSCULAR HEMOGLOBIN 25.8 pg (27.0-34.0); MONOCYTES PERCENT AUTO 7.4 % (2-8); NEUTROPHILS PERCENT AUTO 63.8 % (42.2-75.2); PLATELET COUNT,PLT 383 10^3/uL (150-450); RED BLOOD CELL COUNT 4.96 10^6/uL (4.2-5.4); WHITE BLOOD CELL COUNT,WBC 8.7 10^3/uL (5.0-10.0)
[2022-10-23 23:02] LABS: APPEARANCE,URINE SLIGHTLY CLOUDY (CLEAR); BILIRUBIN,URINE NEGATIVE (NEGATIVE); COLOR,URINE YELLOW (YELLOW); GLUCOSE,URINE NEGATIVE (NEGATIVE); KETONES,URINE NEGATIVE (NEGATIVE); LEUKOCYTE ESTERASE,URINE TRACE (NEGATIVE); NITRITE,URINE POSITIVE (NEGATIVE); OCCULT BLOOD,URINE TRACE-INTACT (NEGATIVE); PROTEIN,URINE NEGATIVE (NEGATIVE); UROBILINOGEN,URINE 0.2 mg/dL (0.2-1.0)
[2022-10-23 23:17] LABS: ALBUMIN 3.1 g/dL (3.4-5.0); ANION GAP 10.9 mEq/L (7-13); BILIRUBIN TOTAL 0.5 mg/dL (0.2-1.0); BUN/CREATININE RATIO 15.9 (No establ ref range); C-REACTIVE PROTEIN 6.4 mg/dL (0.0-0.9); CALCIUM 9.1 mg/dL (8.5-10.1); CREATININE 0.63 mg/dL (0.55-1.02); EST CRCL DRUG DOSING (CG) 106.6 mL/min; POTASSIUM,K 3.9 mmol/L (3.5-5.1); PROTEIN TOTAL,TP 7.5 g/dL (6.4-8.2)
[2022-10-23 23:21] LABS: A/G RATIO 0.7
[2022-10-23 23:28] LABS: BACTERIA,URINE MANY /HPF (0-FEW/HPF); EPITHELIAL CELLS,URINE FEW /HPF (NOT SEEN); MUCUS,URINE MODERATE /LPF (NOT SEEN); WBC,URINE 40-50 /HPF (0-5/HPF)
[2022-10-23] MEDS ORDERED: Iopamidol 612 MG/ML 100 ML Bottle IVPUSH ONE ×2 (23:34→23:44)
[2022-10-24 00:01] VITALS: BP 112/66; PULSE 81
[2022-10-24] MEDS ORDERED: Take Home: Sulfamethoxazole/Trimethoprim 800-160 MG Tab, 6 Tab Pack PO ONE (01:17)
== END 2022-10-24 01:52 | disposition home or self-care (01) ==
LOC: DL.ED 21:24
DX: L03.113 Cellulitis of right upper limb (principal); F15.10 Other stimulant abuse, uncomplicated; E66.9 Obesity, unspecified; Z68.42 Body mass index [BMI] 45.0-49.9, adult
CPT/HCPCS: 36415; 80053; 81001; 85025; 85379; 86140; 87040; 87086; 87088; 87186; 87389; 87491; 87563; 87591; 99284; A9270; Q9967

== ENCOUNTER 2022-11-15 11:02 | Emergency (ER) | payer MEDICAID, OTHER | END 2022-11-15 11:31 | disposition left against medical advice (07) | LOC: DL.ED 11:02 | DX: Z53.21 Procedure and treatment not carried out due to patient leaving prior to being seen by health care provider (principal) ==

== ENCOUNTER 2023-05-23 19:23 | Emergency (ER) | payer MEDICAID ==
[2023-05-23 21:41] VITALS: BP 142/97; PULSE 84
== END 2023-05-23 21:36 | disposition home or self-care (01) ==
LOC: DL.ED 19:23
DX: L03.113 Cellulitis of right upper limb (principal); Z90.49 Acquired absence of other specified parts of digestive tract; Z79.899 Other long term (current) drug therapy
CPT/HCPCS: 99283

== ENCOUNTER 2023-09-24 10:01 | Emergency (ER) | payer MEDICAID ==
[2023-09-24 10:18] VITALS: BP 134/67; PULSE 79
== END 2023-09-24 10:37 | disposition home or self-care (01) ==
LOC: DL.ED 10:01
DX: J40 Bronchitis, not specified as acute or chronic (principal); F17.210 Nicotine dependence, cigarettes, uncomplicated; Z79.899 Other long term (current) drug therapy; Z86.16 Personal history of COVID-19; Z90.49 Acquired absence of other specified parts of digestive tract
CPT/HCPCS: 99283

== ENCOUNTER 2023-09-29 05:52 | Emergency (ER) | payer MEDICAID ==
[2023-09-29] MEDS: Ondansetron 4 MG/2 ML SDV IVPUSH ONE (06:14)
[2023-09-29] MEDS: Sodium Chloride 0.9% 10 ML Syringe FLUSH PRN (06:14)
[2023-09-29 06:21] LABS: BASOPHILS PERCENT AUTO 0.4 % (0.0-1.0); EOSINOPHILS PERCENT AUTO 3.3 % (1.0-3.0); HEMATOCRIT 37.3 % (37.0-47.0); HEMOGLOBIN 11.7 g/dL (12.0-16.0); LYMPHOCYTES PERCENT AUTO 32.8 % (20.5-50.1); MEAN CORPUSCULAR HEMOGLOBIN 23.7 pg (27.0-34.0); MEAN CORPUSCULAR HGB CONC 31.4 g/dL (33.0-35.0); MEAN CORPUSCULAR VOLUME 75.5 fL (80-100); NEUTROPHILS PERCENT AUTO 57.5 % (42.2-75.2); PLATELET COUNT,PLT 397 10^3/uL (150-450); RED BLOOD CELL COUNT 4.94 10^6/uL (4.2-5.4); WHITE BLOOD CELL COUNT,WBC 9.8 10^3/uL (5.0-10.0)
[2023-09-29 06:33] LABS: APPEARANCE,URINE CLEAR (CLEAR); BILIRUBIN,URINE NEGATIVE (NEGATIVE); COLOR,URINE YELLOW (YELLOW); GLUCOSE,URINE NEGATIVE (NEGATIVE); KETONES,URINE NEGATIVE (NEGATIVE); LEUKOCYTE ESTERASE,URINE NEGATIVE (NEGATIVE); NITRITE,URINE NEGATIVE (NEGATIVE); OCCULT BLOOD,URINE NEGATIVE (NEGATIVE); PH,URINE 6.5 (5.0-9.0); PROTEIN,URINE NEGATIVE (NEGATIVE); UROBILINOGEN,URINE 0.2 mg/dL (0.2-1.0)
[2023-09-29 06:36] LABS: AMPHETAMINES,URINE NEGATIVE (NEGATIVE); BARBITURATES,URINE NEGATIVE (NEGATIVE); BENZODIAZEPINE,URINE POSITIVE (NEGATIVE); MDMA (ECSTASY), URINE NEGATIVE (NEGATIVE); METHADONE,URINE NEGATIVE (NEGATIVE); METHAMPHETAMINES,URINE NEGATIVE (NEGATIVE); OPIATES,URINE NEGATIVE (NEGATIVE); OXYCODONE,URINE NEGATIVE (NEGATIVE); PHENCYCLIDINE,URINE NEGATIVE (NEGATIVE); TCA,URINE NEGATIVE (NEGATIVE)
[2023-09-29] MEDS: Ketorolac 30 MG/ML SDV IVPUSH ONE (06:38)
[2023-09-29 06:39] LABS: ANION GAP 11.7 mEq/L (7-13); BILIRUBIN TOTAL 0.2 mg/dL (0.2-1.0); C-REACTIVE PROTEIN 1.57 ng/dL (<=0.50); CALCIUM 8.9 mg/dL (8.5-10.1); CREATININE 0.8 mg/dL (0.55-1.02); EST CRCL DRUG DOSING (CG) 83.14 mL/min; POTASSIUM,K 3.7 mmol/L (3.5-5.1); PROTEIN TOTAL,TP 6.9 g/dL (6.4-8.2)
[2023-09-29 06:40] LABS: A/G RATIO 0.77
[2023-09-29] MEDS: Sodium Chloride 0.9% 1,000 ML IV ONE (06:58)
[2023-09-29] MEDS: Iopamidol 612 MG/ML 100 ML Bottle IVPUSH ONE (07:08)
[2023-09-29 07:17] VITALS: BP 108/83; PULSE 86
== END 2023-09-29 08:24 | disposition home or self-care (01) ==
LOC: DL.ED 05:52
DX: K43.9 Ventral hernia without obstruction or gangrene (principal); R10.31 Right lower quadrant pain; J06.9 Acute upper respiratory infection, unspecified; R05.9 Cough, unspecified; Z86.16 Personal history of COVID-19; Z79.899 Other long term (current) drug therapy
CPT/HCPCS: 36415; 74177; 80053; 80305-QW; 81003; 85025; 86140; 96361; 96374; 96375; 99284; 99284-25; J1885; J2405; J3490; J7030; Q9967

== ENCOUNTER 2023-10-12 14:17 | Emergency (ER) | payer MEDICAID ==
[2023-10-12 14:49] VITALS: BP 131/61; PULSE 88
[2023-10-12 15:37] LABS: BASOPHILS PERCENT AUTO 0.2 % (0.0-1.0); EOSINOPHILS PERCENT AUTO 3.4 % (1.0-3.0); HEMATOCRIT 36.1 % (37.0-47.0); HEMOGLOBIN 11.6 g/dL (12.0-16.0); LYMPHOCYTES PERCENT AUTO 23.2 % (20.5-50.1); MEAN CORPUSCULAR HEMOGLOBIN 23.9 pg (27.0-34.0); MEAN CORPUSCULAR HGB CONC 32.1 g/dL (33.0-35.0); MEAN CORPUSCULAR VOLUME 74.3 fL (80-100); MONOCYTES PERCENT AUTO 7.1 % (2-8); NEUTROPHILS PERCENT AUTO 66.1 % (42.2-75.2); PLATELET COUNT,PLT 284 10^3/uL (150-450); RED BLOOD CELL COUNT 4.86 10^6/uL (4.2-5.4); WHITE BLOOD CELL COUNT,WBC 8.8 10^3/uL (5.0-10.0)
[2023-10-12 15:47] LABS: APPEARANCE,URINE CLEAR (CLEAR); BILIRUBIN,URINE NEGATIVE (NEGATIVE); COLOR,URINE YELLOW (YELLOW); GLUCOSE,URINE NEGATIVE (NEGATIVE); KETONES,URINE NEGATIVE (NEGATIVE); LEUKOCYTE ESTERASE,URINE NEGATIVE (NEGATIVE); NITRITE,URINE NEGATIVE (NEGATIVE); OCCULT BLOOD,URINE NEGATIVE (NEGATIVE); PH,URINE 5.5 (5.0-9.0); PROTEIN,URINE NEGATIVE (NEGATIVE); UROBILINOGEN,URINE 0.2 mg/dL (0.2-1.0)
[2023-10-12 15:54] LABS: AMPHETAMINES,URINE NEGATIVE (NEGATIVE); BARBITURATES,URINE NEGATIVE (NEGATIVE); BENZODIAZEPINE,URINE POSITIVE (NEGATIVE); MDMA (ECSTASY), URINE NEGATIVE (NEGATIVE); METHADONE,URINE NEGATIVE (NEGATIVE); METHAMPHETAMINES,URINE NEGATIVE (NEGATIVE); OPIATES,URINE NEGATIVE (NEGATIVE); OXYCODONE,URINE NEGATIVE (NEGATIVE); PHENCYCLIDINE,URINE NEGATIVE (NEGATIVE); TCA,URINE NEGATIVE (NEGATIVE)
[2023-10-12 15:55] LABS: A/G RATIO 0.71; ALANINE AMINOTRANSFERASE,ALT 44 U/L (14-59); ALBUMIN 2.9 g/dL (3.4-5.0); ALKALINE PHOSPHATASE 71 U/L (46-116); ANION GAP 14.1 mEq/L (7-13); ASPARTATE AMNIOTRANSFERASE,AST 22 U/L (15-37); BILIRUBIN TOTAL 0.3 mg/dL (0.2-1.0); BLOOD UREA NITROGEN,BUN 14 mg/dL (7-18); BUN/CREATININE RATIO 20.3 (No establ ref range); CALCIUM 8.7 mg/dL (8.5-10.1); CARBON DIOXIDE,CO2 22 mmol/L (21-32); CHLORIDE,CL 104 mmol/L (98-107); CREATININE 0.69 mg/dL (0.55-1.02); ESTIMATED GFR 115 mL/min (>=60); GLUCOSE RANDOM 101 mg/dL (70-99); LIPASE 25 U/L (16-77); POTASSIUM,K 4.1 mmol/L (3.5-5.1); SODIUM,NA 136 mmol/L (136-145)
[2023-10-12 16:02] LABS: HCG QUALITATIVE,SERUM NEGATIVE (NEGATIVE)
[2023-10-12] MEDS: GI Cocktail Oral Solution 30 ML PO ONE (16:26)
== END 2023-10-12 16:26 | disposition left against medical advice (07) ==
LOC: DL.ED 14:17
DX: R10.11 Right upper quadrant pain (principal); R11.10 Vomiting, unspecified; F12.90 Cannabis use, unspecified, uncomplicated; Z86.16 Personal history of COVID-19; Z90.49 Acquired absence of other specified parts of digestive tract; F17.210 Nicotine dependence, cigarettes, uncomplicated; Z79.899 Other long term (current) drug therapy
CPT/HCPCS: 36415; 80053; 80305-QW; 81003; 83690; 84703; 85025; 99284

== ENCOUNTER 2024-07-03 08:42 | Emergency (ER) | payer MEDICAID ==
[2024-07-03 09:06] VITALS: BP 122/71; PULSE 95
== END 2024-07-03 11:11 | disposition home or self-care (01) ==
LOC: DL.ED 08:42
DX: M65.4 Radial styloid tenosynovitis [de Quervain] (principal); F17.200 Nicotine dependence, unspecified, uncomplicated; Z79.899 Other long term (current) drug therapy; Z86.16 Personal history of COVID-19; Z90.49 Acquired absence of other specified parts of digestive tract
CPT/HCPCS: 73110-LT; 99283

== ENCOUNTER 2024-09-30 14:56 | Emergency (ER) | payer MEDICAID ==
[2024-09-30 15:13] VITALS: BP 132/83; PULSE 83
[2024-09-30] MEDS: Ketorolac 30 MG/ML SDV IM ONE (15:19)
== END 2024-09-30 15:20 | disposition home or self-care (01) ==
LOC: DL.ED 14:56
DX: J18.9 Pneumonia, unspecified organism (principal); Z79.899 Other long term (current) drug therapy; Z86.16 Personal history of COVID-19; Z90.49 Acquired absence of other specified parts of digestive tract
CPT/HCPCS: 96372; 99283; A9270; J1885